=== PATIENT | male | born 1985 | race African-American/Black ===

== ENCOUNTER 2021-08-03 19:46 | Emergency (ER) | payer MEDICAID ==
[~2021-08-03] VITALS: Ht 177.8 cm; Wt 72.6 kg
[2021-08-04 01:11] VITALS: BP 134/59
[2021-08-04] MEDS ORDERED: IBUPROFEN 800 MG TAB PO ONE (01:15)
== END 2021-08-04 01:27 | disposition home or self-care (01) ==
LOC: EDBD → ER 19:46
DX: S90.415A Abrasion, left lesser toe(s), initial encounter (principal); X58.XXXA Exposure to other specified factors, initial encounter; Y93.89 Activity, other specified; Y92.89 Other specified places as the place of occurrence of the external cause; Y99.8 Other external cause status

== ENCOUNTER 2021-08-04 14:54 | Emergency (ER) | payer MEDICAID ==
[~2021-08-04] VITALS: Ht 175.3 cm; Wt 74.8 kg
[2021-08-04 15:32] VITALS: BP 126/104
[2021-08-04] MEDS ORDERED: cefTRIAXone W LIDOCAINE 1 GM IM IM ONE (16:15)
[2021-08-04] MEDS ORDERED: cefTRIAXone SOD 1,000 MG VL ONE (16:33)
[2021-08-04] MEDS ORDERED: LIDOCAINE 1% HCL (LOCAL ANESTH.) INJ 20ML MDV ONE (16:34)
== END 2021-08-04 17:23 | disposition home or self-care (01) ==
LOC: EDBD 14:54 → ER 14:54
DX: J18.9 Pneumonia, unspecified organism (principal); R51.9 Headache, unspecified
CPT/HCPCS: 70450; 71045; 96372; 99284; J0696; J2001

== ENCOUNTER 2021-10-09 15:12 | Emergency (ER) | payer MEDICAID ==
[~2021-10-09] VITALS: Ht 175.3 cm; Wt 74.8 kg
[2021-10-09 19:00] VITALS: BP 142/77
== END 2021-10-09 19:01 | disposition home or self-care (01) ==
LOC: ER 15:12
DX: R55 Syncope and collapse (principal); F17.210 Nicotine dependence, cigarettes, uncomplicated; Z20.822 Contact with and (suspected) exposure to COVID-19
CPT/HCPCS: 36415; 71045; 87426

== ENCOUNTER 2023-03-29 22:48 | Emergency (ER) | payer MEDICAID, OTHER ==
[~2023-03-29] VITALS: Ht 175.3 cm; Wt 75.0 kg
[2023-03-29 23:52] VITALS: BP 156/82
[2023-03-30] MEDS ORDERED: ACETAMINOPHEN 325 MG TAB PO ONE (00:15)
[2023-03-30] MEDS ORDERED: TOB03OS OP (09:51)
[2023-03-31] MEDS ORDERED: ERY05OO OP (07:21)
== END 2023-03-30 02:07 | disposition home or self-care (01) ==
LOC: ER 22:48 → EDBD 22:48 → ER 03-30 02:06
DX: G43.909 Migraine, unspecified, not intractable, without status migrainosus (principal); F17.210 Nicotine dependence, cigarettes, uncomplicated; F12.10 Cannabis abuse, uncomplicated
CPT/HCPCS: 70450

== ENCOUNTER 2023-03-30 09:08 | Emergency (ER) | payer OTHER ==
[~2023-03-30] VITALS: Ht 165.1 cm; Wt 81.8 kg
[2023-03-30 09:10] VITALS: BP 139/96
[2023-03-30] MEDS ORDERED: TOB03OS OP (09:51)
[2023-03-31] MEDS ORDERED: ERY05OO OP (07:21)
== END 2023-03-30 10:09 | disposition home or self-care (01) ==
LOC: ER 09:08
DX: H10.33 Unspecified acute conjunctivitis, bilateral (principal); F17.210 Nicotine dependence, cigarettes, uncomplicated; Z79.899 Other long term (current) drug therapy

== ENCOUNTER 2023-03-31 06:14 | Emergency (ER) | payer OTHER ==
[~2023-03-31] VITALS: Ht 175.3 cm; Wt 69.5 kg
[~2023-03-31 06:14] MED LIST: TOB03OS OP
[2023-03-31 07:15] VITALS: BP 151/99
[2023-03-31] MEDS ORDERED: ERY05OO OP (07:21)
== END 2023-03-31 07:51 | disposition home or self-care (01) ==
LOC: ER 06:14
DX: H10.33 Unspecified acute conjunctivitis, bilateral (principal); F17.210 Nicotine dependence, cigarettes, uncomplicated; F12.10 Cannabis abuse, uncomplicated; Z88.1 Allergy status to other antibiotic agents

== ENCOUNTER 2023-08-06 02:39 | Emergency (ER) | payer OTHER ==
[~2023-08-06] VITALS: Ht 180.3 cm; Wt 77.1 kg
[~2023-08-06 02:39] MED LIST changes: +ERY05OO OP
[2023-08-06 03:01] LABS: Basophils # (auto) 0 10 ^3/uL (0-0.2); Basophils % (auto) 0.2 % (0.0-2.0); Eosinophils # (auto) 0.1 10 ^3/uL (0-0.8); Eosinophils % (auto) 0.7 % (0.0-7.0); Hematocrit 34.9 % (41.0-53.0); Hemoglobin 11.8 g/dL (13.5-17.5); Lymphocytes # (auto) 2.4 10 ^3/uL (0.4-5.4); Lymphocytes % (auto) 29.1 % (10.0-50.0); Mean Corpuscular Hemoglobin 31.1 pg (28.0-32.0); Mean Corpuscular Hgb Conc. 33.7 g/dL (32.0-36.0); Mean Corpuscular Volume 92.5 fL (80.0-100.0); Monocytes # (auto) 1.1 10 ^3/uL (0-1.3); Monocytes % (auto) 13.9 % (0.0-12.0); Neutrophils # (auto) 4.6 10 ^3/uL (1.6-8.6); Neutrophils % (auto) 56.1 % (37.0-80.0); Red Blood Cells 3.78 10^6/uL (4.5-5.90); Red Cell Distribution Width 13.4 % (11.8-14.3); White Blood Cell 8.2 10^3/uL (4.4-10.8)
[2023-08-06 03:14] LABS: Alanine Aminotransferase 12 U/L (7-40); Albumin 4.2 g/dL (3.2-4.8); Alkaline Phosphatase 76 U/L (46-116); Anion Gap 6 (5-15); Aspartate Aminotransferase 9 U/L (13-40); BUN/Creatinine Ratio 17.6 (10.0-20.0); Blood Urea Nitrogen 15 mg/dL (9-23); Calcium 8.8 mg/dL (8.7-10.4); Carbon Dioxide 28 mmol/L (20-30); Chloride 103 mmol/L (98-107); Glucose 114 mg/dL (74-106); Magnesium 1.5 mg/dL (1.6-2.6); Potassium 3.1 mmol/L (3.5-5.1); Sodium 137 mmol/L (136-145)
[2023-08-06 03:15] LABS: Bilirubin, Total 0.6 mg/dL (0.2-1.0); Total Protein 6.9 g/dL (5.7-8.2)
[2023-08-06 03:17] LABS: INR 1.01 (0.9-1.15); Prothrombin Time 10.6 sec (9.3-11.8)
[2023-08-06 06:43] VITALS: BP 121/72; PULSE 101; RESP 14; O2SAT 98
[2023-08-06 07:59] LABS: Urine Bacteria NONE SEEN /hpf (None Seen); Urine Blood Negative /uL (Negative); Urine Clarity HAZY (Clear); Urine Color Yellow (Yellow); Urine Mucus FEW (None Seen); Urine Protein, UAD TRACE (Negative); Urine Specific Gravity 1.035 (1.001-1.035); Urine WBC 6 /hpf (0 - 3)
== END 2023-08-06 08:15 | disposition home or self-care (01) ==
LOC: EDBD 02:39 → ER 02:40
DX: R10.9 Unspecified abdominal pain (principal); R07.89 Other chest pain; F17.210 Nicotine dependence, cigarettes, uncomplicated; Z59.00 Homelessness unspecified; Z79.2 Long term (current) use of antibiotics
CPT/HCPCS: 36415; 71045; 80053; 81001; 83735; 83880; 84484; 85025; 85610; 85730; 93005

== ENCOUNTER 2023-08-06 19:20 | Emergency (ER) | payer OTHER ==
[~2023-08-06] VITALS: Ht 175.3 cm; Wt 72.0 kg
[2023-08-06] MEDS ORDERED: ONDANSETRON HCL 4 MG/2 ML VIAL IV ONE (19:45)
[2023-08-06] MEDS ORDERED: HYDROmorphone HCL 2 MG/ML VL/or syr IV ONE (19:45)
[2023-08-06] MEDS ORDERED: SODIUM CHLORIDE 0.9% 2,000 ML IV ONE (19:45)
[2023-08-06] MEDS ORDERED: IOHEXOL 350 MG/ML 100ML IJ ONE (23:07)
[2023-08-06] MEDS ORDERED: IODIXANOL 320MG/ML 100ML BTL IV ONE (23:07)
[2023-08-07 01:20] LABS: Alanine Aminotransferase 15 U/L (7-40); Albumin 4.1 g/dL (3.2-4.8); Alkaline Phosphatase 65 U/L (46-116); Anion Gap 5 (5-15); Aspartate Aminotransferase 11 U/L (13-40); BUN/Creatinine Ratio 7.8 (10.0-20.0); Blood Urea Nitrogen 6 mg/dL (9-23); Calcium 8.8 mg/dL (8.7-10.4); Carbon Dioxide 29 mmol/L (20-30); Chloride 104 mmol/L (98-107); Lipase 39 U/L (12-53); Potassium 3.1 mmol/L (3.5-5.1); Sodium 138 mmol/L (136-145)
[2023-08-07 01:21] LABS: Bilirubin, Total 0.7 mg/dL (0.2-1.0); Total Protein 6.8 g/dL (5.7-8.2)
[2023-08-07 01:56] LABS: Glucose 95 mg/dL (74-106)
[2023-08-07 02:19] LABS: Basophils # (auto) 0 10 ^3/uL (0-0.2); Basophils % (auto) 0.1 % (0.0-2.0); Eosinophils # (auto) 0.1 10 ^3/uL (0-0.8); Eosinophils % (auto) 1.9 % (0.0-7.0); Hematocrit 34.6 % (41.0-53.0); Hemoglobin 11.6 g/dL (13.5-17.5); Lymphocytes # (auto) 2.2 10 ^3/uL (0.4-5.4); Mean Corpuscular Hgb Conc. 33.6 g/dL (32.0-36.0); Mean Corpuscular Volume 92.4 fL (80.0-100.0); Monocytes # (auto) 1.2 10 ^3/uL (0-1.3); Monocytes % (auto) 17.8 % (0.0-12.0); Neutrophils # (auto) 3.4 10 ^3/uL (1.6-8.6); Neutrophils % (auto) 49.2 % (37.0-80.0); Nucleated Red Blood Cells % 0.2 %; Red Blood Cells 3.74 10^6/uL (4.5-5.90); Red Cell Distribution Width 13.5 % (11.8-14.3)
[2023-08-07] MEDS ORDERED: POTASSIUM EFFERVESENT TAB 25 MEQ GT ONE (05:15)
[2023-08-07 05:22] VITALS: BP 130/72; PULSE 79; RESP 18; TEMP 98.3; O2SAT 100
== END 2023-08-07 05:42 | disposition home or self-care (01) ==
LOC: ER 19:20
DX: K52.9 Noninfective gastroenteritis and colitis, unspecified (principal); E87.6 Hypokalemia; F17.210 Nicotine dependence, cigarettes, uncomplicated; F12.10 Cannabis abuse, uncomplicated; Z59.00 Homelessness unspecified
CPT/HCPCS: 36415; 74177; 80053; 83690; 85025; 96374; 99285; J2405; Q9967